=== PATIENT | male | born 1970 | race Caucasian/White ===

== ENCOUNTER 2022-01-28 07:00 | Day surgery (SDC) | payer OTHER ==
[2022-01-26 15:45] VITALS: BMI 27.1
[2022-01-28] MEDS ORDERED: BUPIVACAINE HCL/PF 0.25% (2.5MG/ML) 10 ML VIAL ONE (07:10)
[2022-01-28] MEDS ORDERED: MIDAZOLAM HCL 2 MG/2 ML SINGLE DOSE VIAL ONE (07:10)
[2022-01-28] MEDS ORDERED: BUPIVACAINE HCL/PF 0.5% (5MG/ML) 10 ML VIAL ONE (07:10)
[2022-01-28] MEDS ORDERED: BUPIVACAINE LIPOSOME/PF (EXPAREL) 266 MG/20 ML VIAL ONE (07:10)
[2022-01-28] MEDS ORDERED: EPINEPHrine 1:1,000 1,000 MCG/ML ML ONE ×2 (07:11→07:15)
[2022-01-28] MEDS ORDERED: PROPOFOL 20 ML ONE ×2 (07:56)
[2022-01-28] MEDS ORDERED: ceFAZolin SODIUM 1 GM VIAL ONE (08:03)
[2022-01-28] MEDS ORDERED: DEXAMETHASONE SOD PHOSPHATE 4 MG/1 ML VIAL ONE (08:06)
[2022-01-28] MEDS ORDERED: ONDANSETRON 4 MG/2 ML VIAL ONE (08:06)
[2022-01-28] MEDS ORDERED: GABAPENTIN 400 MG CAPSULE PO PRN (08:46)
[2022-01-28] MEDS ORDERED: CHOLECALCIFEROL (VIT D3) 5000 UNITS (125 MCG) CAP PO SCH (09:00)
[2022-01-28] MEDS ORDERED: FENTANYL CITRATE/PF 50 MCG/ML VIAL ONE (09:22)
[2022-01-28] MEDS ORDERED: lamoTRIgine 25 MG TABLET PO SCH (10:00)
[2022-01-28] MEDS ORDERED: VENLAFAXINE HCL 37.5 MG TABLET PO SCH (10:00)
[2022-01-28] MEDS ORDERED: PERPHENAZINE 2 MG TABLET PO SCH (10:00)
[2022-01-28] MEDS ORDERED: ASPIRIN 325 MG ENTERIC COATED TABLET (FP) PO SCH (10:00)
[2022-01-28 11:11] VITALS: RESP 16; TEMP 97.7
[2022-01-28 11:17] VITALS: BP 138/85; PULSE 84
[2022-01-28] MEDS ORDERED: oxyCODONE HCL 5 MG TABLET PO PRN (11:57)
[2022-01-28] MEDS ORDERED: ONDANSETRON 4 MG/2 ML VIAL IVPUSH PRN (11:57)
[2022-01-28] MEDS ORDERED: LACTATED RINGERS SOLUTION 1,000 ML IV SCH (12:00)
== END 2022-01-28 11:15 | disposition home or self-care (01) ==
LOC: FASU 07:00
PROVIDERS: ATTEND Orthopaedic Surgery
PROC: 0SBD4ZZ Excision of Left Knee Joint, Percutaneous Endoscopic Approach (ICD-10-PCS; principal; 2022-01-28 08:16)
DX: S83.242A Other tear of medial meniscus, current injury, left knee, initial encounter (principal); S83.412A Sprain of medial collateral ligament of left knee, initial encounter; X58.XXXA Exposure to other specified factors, initial encounter; Y93.9 Activity, unspecified; Y92.9 Unspecified place or not applicable
CPT/HCPCS: 94760